=== PATIENT | male | born 1955 | race Caucasian/White ===

== ENCOUNTER 2021-01-06 02:20 | Inpatient (IN) | payer MEDICARE, OTHER ==
[~2021-01-06] VITALS: Ht 167.6 cm; Wt 57.9 kg
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
[2021-01-06] MEDS ORDERED: PLEASE ENTER ALLERGIES MC SCH (03:00)
[2021-01-06] MEDS ORDERED: BACL-19 PO (03:21)
[2021-01-06] MEDS ORDERED: AMAN100T PO (03:21)
[2021-01-06] MEDS ORDERED: CELE200C PO (03:21)
[2021-01-06] MEDS ORDERED: CARB1TAB46 PO (03:21)
[2021-01-06] MEDS ORDERED: LISI1TAB39 PO (03:21)
--- NOTE | 2021-01-06 03:36 | NUR ---
REPORT GIVEN TO CHRISTELLE ENGEL
[2021-01-06] MEDS: SODIUM CHLORIDE 0.9% IV SCH ×3 (03:44→19:33)
[2021-01-06] MEDS: ACYCLOVIR IV SCH ×3 (03:44→19:33)
[2021-01-06] MEDS ORDERED: LABETALOL 5MG/ML, 20ML IVPush PRN (04:00)
[2021-01-06] MEDS ORDERED: ONDANSETRON 2MG/ML, 2ML IVPush PRN (04:00)
[2021-01-06] MEDS ORDERED: THIAMINE 200 MG in SODIUM CHLORIDE 0.9% 50 ML IV ONE (04:00)
[2021-01-06] MEDS ORDERED: LORazepam 2 MG/ML, 1ML IVPush PRN (04:00)
[2021-01-06 04:12] VITALS: BP 174/81
[2021-01-06] MEDS ORDERED: VANCOMYCIN PER PHARMACY MC PRN (04:30)
[2021-01-06] MEDS: CEFTAZIDIME PMX 2 GM/50ML 50 ML IV SCH ×3 (04:30→22:18)
[2021-01-06] MEDS ORDERED: PHARMACY MAY ADJ FOR RENAL FX MC PRN (04:30)
[2021-01-06 04:54] LABS: ANION GAP 10 mmol/L (5-15); CALCIUM 9.5 mg/dL (8.5-10.1); CHLORIDE 111 mmol/L (98-107); CREATININE 1.89 mg/dL (0.7-1.3)
[2021-01-06] MEDS ORDERED: PHARMACOKINETIC CONSULTATION MC ONE (05:30)
[2021-01-06] MEDS ORDERED: VANCOMYCIN 1,400 MG in SODIUM CHLORIDE 0.9% 250 ML IV ONE (05:30)
[2021-01-06] MEDS ORDERED: PHARMACOKINETIC MONITORING MC PRN (05:30)
[2021-01-06 07:20] VITALS: BP 179/96
[2021-01-06 07:42] LABS: MICROSCOPIC NOT IND
[2021-01-06 07:44] LABS: AMPHETAMINE SCREEN, URINE Negative (Negative); BARBITURATE SCREEN, URINE Negative (Negative); BENZODIAZEPINE SCREEN, URINE Positive (Negative); CANNABINOID SCREEN, URINE Negative (Negative); COCAINE SCREEN, URINE Negative (Negative); METHADONE SCREEN, URINE Negative (Negative); OPIATE SCREEN, URINE Negative (Negative)
[2021-01-06] MEDS ORDERED: HALOPERIDOL 5 MG/ML IM PRN (10:30)
[2021-01-06] MEDS: SODIUM CHLORIDE 0.9% 1,000 ML IV SCH ×2 (10:46→14:18)
[2021-01-06 11:15] LABS: BASOPHILS % (AUTO) 1 % (0-1); EOSINOPHILS % (AUTO) 0 % (1-7); LYMPHOCYTES % (AUTO) 11 % (22-44); MEAN CORPUSCULAR HEMOGLOBIN 33.8 pg (27.5-34.5); MEAN CORPUSCULAR HGB CONC 33.8 g/dL (33.2-36.2); MEAN PLATELET VOLUME 9.3 fL (7.4-10.4); MONOCYTES % (AUTO) 8 % (2-9); NEUTROPHILS % (AUTO) 81 % (42-75); PLATELET COUNT 217 x10^3/uL (130-400); RED BLOOD COUNT 3.01 x10^6/uL (4.38-5.82)
[2021-01-06 11:25] LABS: MD NO
[2021-01-06 11:27] LABS: C-REACTIVE PROTEIN, QUANT 1.8 mg/dL (0.02-0.49)
[2021-01-06] MEDS ORDERED: OLANZAPINE 10 MG INJ IM ONE (12:00)
[2021-01-06 12:01] LABS: HCT (SEDRATE) 30.1 % (39.2-51.8)
[2021-01-06] MEDS ORDERED: LORazepam 2 MG/ML, 1ML IVPush ONE (13:00)
[2021-01-06 14:20] VITALS: BP 169/80
[2021-01-06] MEDS: LORazepam 2 MG/ML, 1ML IVPush PRN (18:12)
[2021-01-06 19:40] VITALS: BP 165/67
[2021-01-06] MEDS: VANCOMYCIN PMX 1GM/200ML 200 ML IV SCH (20:43)
[2021-01-06] MEDS: QUETIAPINE 25MG TABLET PO SCH (20:44)
[2021-01-07] MEDS: LORazepam 2 MG/ML, 1ML IVPush PRN ×3 (00:50→12:38)
[2021-01-07 01:42] VITALS: BP 174/81
[2021-01-07 02:03] VITALS: BP 165/54
[2021-01-07 02:06] VITALS: BP 142/65
[2021-01-07] MEDS: ACETAMINOPHEN 325 MG TABLET PO PRN ×3 (02:07→21:53)
[2021-01-07] MEDS: SODIUM CHLORIDE 0.9% 1,000 ML IV SCH ×3 (02:19→16:30)
[2021-01-07] MEDS: ACYCLOVIR IV SCH ×3 (03:15→23:39)
[2021-01-07] MEDS: SODIUM CHLORIDE 0.9% IV SCH ×3 (03:15→23:39)
[2021-01-07] MEDS: CEFTAZIDIME PMX 2 GM/50ML 50 ML IV SCH ×3 (05:17→22:59)
[2021-01-07 05:32] LABS: BASOPHILS % (AUTO) 1 % (0-1); EOSINOPHILS % (AUTO) 1 % (1-7); LYMPHOCYTES % (AUTO) 10 % (22-44); MEAN CORPUSCULAR HEMOGLOBIN 34.1 pg (27.5-34.5); MEAN CORPUSCULAR HGB CONC 33.8 g/dL (33.2-36.2); MEAN PLATELET VOLUME 9.3 fL (7.4-10.4); MONOCYTES % (AUTO) 7 % (2-9); NEUTROPHILS % (AUTO) 82 % (42-75); PLATELET COUNT 189 x10^3/uL (130-400); RED BLOOD COUNT 2.92 x10^6/uL (4.38-5.82); RED CELL DISTRIBUTION WIDTH 13.2 % (9.4-14.8)
[2021-01-07 05:34] LABS: MD NO
[2021-01-07 07:12] LABS: ANION GAP 11 mmol/L (5-15); CALCIUM 9.5 mg/dL (8.5-10.1); CHLORIDE 119 mmol/L (98-107); CHOLESTEROL, TOTAL 171 mg/dL (140-239); CREATININE 1.61 mg/dL (0.7-1.3); TRIGLYCERIDES 72 mg/dL (50-200); VLDL CHOLESTEROL 14 mg/dL (0-25)
[2021-01-07 07:19] LABS: CHOL/HDL RATIO 1.8; HDL CHOL % 57 % (26-37); HDL CHOLESTEROL (DIRECT) 97 mg/dL (40-60); LDL CHOLESTEROL,CALCULATED 60 mg/dL (54-169); LDL/HDL RATIO 0.6 (0.5-3.0)
[2021-01-07] MEDS ORDERED: OLANZAPINE 10 MG INJ IM ONE (07:30)
[2021-01-07 07:35] LABS: VANCOMYCIN,TROUGH 28.6 mcg/mL (5.0-10.0)
[2021-01-07 07:36] VITALS: BP 161/79
[2021-01-07] MEDS: CARBIDOPA/LEVODOPA 10 MG/100 MG TABLET PO SCH ×5 (08:16→23:30)
[2021-01-07] MEDS: VANCOMYCIN PMX 1GM/200ML 200 ML IV SCH (08:57)
[2021-01-07] MEDS ORDERED: hydrALAzine 20 MG/ML, 1ML IV PRN (09:30)
[2021-01-07] MEDS: AMANTADINE 100 MG CAPSULE PO SCH ×3 (10:11→20:04)
[2021-01-07 12:35] LABS: GLUCOSE, CSF 37 mg/dL (40-80); TOTAL PROTEIN,CSF 70 mg/dL (15-45)
[2021-01-07] MEDS: VALPROATE SODIUM 500 MG in DEXTROSE 5% 100 ML IV SCH ×2 (12:42→20:03)
[2021-01-07 13:14] VITALS: BP 147/88
[2021-01-07] MEDS: HALOPERIDOL 5 MG/ML IM PRN ×2 (16:20→21:52)
[2021-01-07 18:57] VITALS: BP 151/76
[2021-01-07] MEDS: QUETIAPINE 25MG TABLET PO SCH (20:04)
[2021-01-07] MEDS ORDERED: VALPROATE SODIUM 500 MG in DEXTROSE 5% 100 ML IV SCH (21:00)
[2021-01-07] MEDS ORDERED: LORazepam 2 MG/ML, 1ML IVPush ONE (23:30)
[2021-01-08] MEDS ORDERED: DIAZEPAM 5 MG/ML, 2ML IV ONE (03:00)
[2021-01-08] MEDS: SODIUM CHLORIDE 0.9% 1,000 ML IV SCH (03:00)
[2021-01-08] MEDS: CARBIDOPA/LEVODOPA 10 MG/100 MG TABLET PO SCH ×2 (03:33→07:34)
[2021-01-08] MEDS: HALOPERIDOL 5 MG/ML IM PRN (06:39)
[2021-01-08] MEDS: CEFTAZIDIME PMX 2 GM/50ML 50 ML IV SCH (07:00)
[2021-01-08] MEDS ORDERED: DEXTROSE 5% 1,000 ML IV SCH (07:00)
[2021-01-08] MEDS ORDERED: GLUCAGON 1 MG IM PRN (07:00)
[2021-01-08] MEDS ORDERED: DEXTROSE 4 GM TAB.CHEW PO PRN (07:00)
[2021-01-08] MEDS ORDERED: DEXTROSE 50%, 50ML SYRINGE IVPush PRN (07:00)
[2021-01-08 07:42] LABS: ALANINE AMINOTRANSFERASE 18 U/L (12-78); ALBUMIN 2.5 g/dL (3.4-5.0); ANION GAP 12 mmol/L (5-15); CALCIUM 7.5 mg/dL (8.5-10.1); CHLORIDE 105 mmol/L (98-107); CREATININE 1.56 mg/dL (0.7-1.3)
[2021-01-08 07:46] LABS: ALKALINE PHOSPHATASE 84 U/L (45-117); BILIRUBIN,TOTAL 0.8 mg/dL (0.2-1.0); TOTAL PROTEIN 5.8 g/dL (6.4-8.2)
[2021-01-08] MEDS ORDERED: PHENYTOIN SODIUM 1,000 MG in SODIUM CHLORIDE 0.9% 100 ML IV ONE (08:30)
[2021-01-08] MEDS ORDERED: FILTER 0.22 MICRON IV ONE (08:30)
[2021-01-08 08:49] LABS: MEAN CORPUSCULAR HEMOGLOBIN 33.3 pg (27.5-34.5); MEAN CORPUSCULAR HGB CONC 32.5 g/dL (33.2-36.2); MEAN PLATELET VOLUME 9.7 fL (7.4-10.4); PLATELET COUNT 202 x10^3/uL (130-400); RED BLOOD COUNT 3.51 x10^6/uL (4.38-5.82); RED CELL DISTRIBUTION WIDTH 13.5 % (9.4-14.8)
[2021-01-08 08:51] LABS: MD YES
[2021-01-08] MEDS ORDERED: MORPHINE SULFATE 4 MG/ML, 1ML ONE (08:52)
[2021-01-08] MEDS ORDERED: LORazepam 2 MG/ML, 1ML ONE (08:52)
[2021-01-08] MEDS: VALPROATE SODIUM 500 MG in DEXTROSE 5% 100 ML IV SCH (09:00)
[2021-01-08] MEDS ORDERED: LORazepam 2 MG/ML, 1ML IVPush ONE (09:00)
[2021-01-08] MEDS: AMANTADINE 100 MG CAPSULE PO SCH (09:00)
[2021-01-08] MEDS ORDERED: MORPHINE SULFATE 4 MG/ML, 1ML IVPush PRN (09:00)
[2021-01-08] MEDS ORDERED: SODIUM CHLORIDE FLUSH 10ML SYR IVF SCH (09:00)
[2021-01-08] MEDS ORDERED: VANCOMYCIN PMX 1GM/200ML 200 ML IV SCH (09:00)
[2021-01-08] MEDS ORDERED: AMLODIPINE 10 MG TAB PO SCH (09:00)
[2021-01-08 09:01] LABS: ALANINE AMINOTRANSFERASE 30 U/L (12-78); ALBUMIN 3.3 g/dL (3.4-5.0); ANION GAP 7 mmol/L (5-15); CHLORIDE 123 mmol/L (98-107); CREATININE 1.64 mg/dL (0.7-1.3)
[2021-01-08 09:05] LABS: ALKALINE PHOSPHATASE 122 U/L (45-117); BILIRUBIN,TOTAL 1.1 mg/dL (0.2-1.0); TOTAL PROTEIN 7.7 g/dL (6.4-8.2); TROPONIN I 0.233 ng/mL (0.000-0.045); VANCOMYCIN,TROUGH 16.8 mcg/mL (5.0-10.0)
[2021-01-08] MEDS ORDERED: FLUMAZENIL 0.1 MG/1 ML, 5ML ONE (09:07)
[2021-01-08 09:10] LABS: <PLATELET ESTIMATE> ADEQUATE; <PLT MORPHOLOGY> NORMAL PLT MORPH; ANISOCYTOSIS 1+; BAND#(MANUAL) 1.06 x10^3/uL; BANDS%(MANUAL) 4 % (0-7); LYMPH#(MANUAL) 1.86 x10^3/uL (1-3.4); LYMPHS% (MANUAL) 7 % (22-44); MONOS#(MANUAL) 0.27 x10^3/uL (0.3-2.7); MONOS% (MANUAL) 1 % (2-9); SEG#(MANUAL) 23.32 x10^3/uL (1.8-6.8); SEGS% (MANUAL) 88 % (42-75)
[2021-01-08] MEDS: ACYCLOVIR IV SCH (10:13)
[2021-01-08] MEDS: SODIUM CHLORIDE 0.9% IV SCH (10:13)
[2021-01-08] MEDS ORDERED: DEXTROSE 50%, 50ML SYRINGE ONE (13:01)
== END 2021-01-08 09:17 | disposition expired | DRG 97 ==
LOC: ED 03:05 → EDIP 03:11 → 3N 04:00 → CCU 01-08 07:26
PROVIDERS: ADMIT Family Medicine; ATTEND Hospitalist
PROC: 009U3ZX Drainage of Spinal Canal, Percutaneous Approach, Diagnostic (ICD-10-PCS; principal; 2021-01-07)
PROC: B01BZZZ Fluoroscopy of Spinal Cord (ICD-10-PCS; 2021-01-07)
DX: G03.9 Meningitis, unspecified (principal); J96.01 Acute respiratory failure with hypoxia; G93.40 Encephalopathy, unspecified; N17.9 Acute kidney failure, unspecified; G20 Parkinson's disease; Z20.822 Contact with and (suspected) exposure to COVID-19; I10 Essential (primary) hypertension; M19.90 Unspecified osteoarthritis, unspecified site; Z96.653 Presence of artificial knee joint, bilateral; G56.03 Carpal tunnel syndrome, bilateral upper limbs; D64.9 Anemia, unspecified; E16.2 Hypoglycemia, unspecified; Z66 Do not resuscitate; Z82.0 Family history of epilepsy and other diseases of the nervous system; Z79.899 Other long term (current) drug therapy; Z95.0 Presence of cardiac pacemaker; Z86.61 Personal history of infections of the central nervous system
CPT/HCPCS: 36415; 36600; 62270; 62328; 70450; 71045; 76604; 80048; 80053; 80061; 80202; 80307; 81003; 82140; 82570; 82607; 82803; 82945; 82962; 83605; 84145; 84157; 84300; 84443; 84484; 85025; 85651; 86140; 86592; 87040; 87070; 87081; 87205; 87529; 89051; 93005; 99285; G0378; J0133; J1165; J3360; J3370; J3411; J7070; 92523-GN; J0713; J1630; J2060; J2270; J7030; J7050